=== PATIENT | female | born 1995 | race Caucasian/White ===

== ENCOUNTER 2016-05-29 17:59 | Emergency (ER) | payer OTHER ==
[~2016-05-29] VITALS: Ht 165.1 cm; Wt 63.6 kg
[2016-05-29 18:16] VITALS: BP 131/86; PULSE 84; RESP 15; O2SAT 100
[2016-05-29] MEDS ORDERED: Ondansetron 2 mg/mL 2 mL Inj IVPUSH ONE (18:35)
[2016-05-29] MEDS ORDERED: 0.9% Sodium Chloride 1,000 ML IV ONE (18:35)
--- NOTE | 2016-05-29 19:18 | ED.REPORT ---
HPI-General Illness Date of Service May 29, 2016 ED Provider: Stephan Andre MD Patient is a 21 year old female with a complicated past medical history including "stroke during infancy" with right hemiplegia, seizure disorder, and chronic migraines s/p left hemispherectomy (2012) who presents to the ED accompanied by her mother with a extremely vague history waxing and waning headache onset two weeks ago. Associated symptoms include subjective fever, pallor, fatigue, diarrhea, abdominal pain, nausea, vomiting, and intermittent periods of unresponsive "spacing out." The patient and her mother do not know if there is a pattern to the vomiting and unresponsive episodes. She has not had any neck stiffness, they have never measured her temperature or detected any objective fevers. The patient denies hematemesis, hematochezia, or other symptoms. No known sick contacts. She was given migraine medication and has been taking "a lot" of Ibuprofen, with some relief. The patient has had similar symptoms in the past, although less severe, associated with migraines after her brain surgery. The patient's parents also recently experienced 24 hours of migraine headaches but the patient has no other ill contacts. She has had no recent changes in medication. She has been taking her antiseizure medication is had no changes to her antiseizure medication regimen. She takes Trileptal. History is extremely vague both from patient and mother. She is followed by a neurologist in [place] by the name of Dr. Mackenzie Bacon. Nursing Notes Stated Complaint: VOMITING, FEVER Chief Complaint: General Complaint Nursing Notes Reviewed: Yes Allergies: Coded Allergies: lamotrigine (Verified Allergy, Severe, RENAL FAILURE, 05/29/16) No Known Allergies (Unverified Allergy, Unknown, 05/29/16) Scheduled Sulfamethoxazole/Trimeth 800-160 mg (Bactrim DS) 1 Each Tablet 1 TABLET PO BID General Time Seen by MD: 18:32 Chief Complaint Headache Hx Obtained From: Patient, Other family... (Mother) Arrived By: Walk-in Sudden in Onset?: No Onset Occurred: More than a week ago... (2 weeks) Symptom Duration: Waxes and wanes Location: : Abdomen: Head Quality: Painful Severity: Current: Moderate Severity: Maximum: Moderate Associated with: Reports: Fever, Nausea, Vomiting Relieved by: OTC medications, Prescription meds Context Related History: Reports Seizure disorder Recent Healthcare: Recent doctor visit Similar Sx Previous: Yes Past Medical History Past Medical History Stroke during infancy with right hemiplegia - seen at [facility] Seizure disorder Migraines Irregular heartbeat Past Surgical History Left hemispherectomy 2013 Smoking History Unknown if Ever Smoker Social History Other Social History: Good social support Ambulatory Status Independent Review of Systems + Pallor Full Review of Systems Constitutional: Reports: Fatigue, Fever (subjective ) Respiratory: Denies: Non-productive cough, Shortness of breath GI: Reports: Abdominal pain, Diarrhea, Nausea, Vomiting, Denies: Hematemesis, Hematochezia Neurologic: Reports: Change LOC (Periods of unresponsive "spacing out"), Headache (waxing and waning) Complete sys rev & neg: except as marked. Physical Exam Vital Signs Vital Signs Date Time Temp Pulse Resp B/P Pulse Ox O2 Delivery O2 Flow Rate FiO2 05/29/16 20:47 36.6 95 21 118/66 99 Room Air 05/29/16 18:16 36.8 84 15 131/86 100 Initial VS: Reviewed ENT: Conjunctiva normal, No scleral icterus Skin: Warm, Dry, No cyanosis Psychiatric: Mood/affect normal, Behavior normal, Normal thought content General/Constitutional: Awake, Alert Head / Eyes: Normocephalic Well-healed left craniotomy scar Neck: Supple, Full range of motion, No swelling Respiratory / Chest: Breath sounds NL, Breath sounds = bilat, No respiratory distress Cardiovascular: Heart rate NL, Regular rhythm, Heart sounds NL, No gallop, No murmurs, No rubs Wrist / Hand: Atraumatic 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 Neurologic: Oriented X3, Speech NL, No sensory deficits Focal Weakness: Positive: Lower extremity R (Plantarflexion, baseline), Upper extremity R (Right hand, baseline) Cerebellar Dysfunction: Negative: Finger-nose abnl Patient has 5/5 strength left lower extremity Interpretation & Diagnostics URINE : Negative URINE DIPSTICK: Bedside Urine Specific Glasgow * 1.010 Bedside Urine pH * 8 Bedside Urine Leukocyte Esterase * + Bedside Urine Nitrite * Negative Bedside Urine Protein * Negative Bedside Urine Glucose * Normal Bedside Urine Ketones * + Small Bedside Urine Urobilinogen * Normal Bedside Urine Bilirubin * Negative Bedside Urine Occult Blood * ~ 250 Aneudy/ml Urine to Lab * Yes Lab Results Interpretation Result Diagram: 05/29/16184805/29/16 184 Test 05/29/16 18:49 05/29/16 19:45 White Blood Count 9.9th/mm3 (3.8-10.1) Red Blood Count 4.88mil/mm3 (3.90-5.20) Hemoglobin 14.3g/dL (12.0-15.6) Hematocrit 42.1% (35.0-46.0) Mean Corpuscular Volume 86.3fL (81-100) Mean Corpuscular Hemoglobin 29.3pg (27.0-35.0) Mean Corpuscular Hemoglobin Concent 34.0% (32.0-37.0) Red Cell Distribution Width 12.4% (12.3-15.4) Platelet Count 245bil/L (150-400) Neutrophils (%) (Auto) 77.3% (40-74) Lymphocytes (%) (Auto) 17.6% (14-46) Monocytes (%) (Auto) 4.7% (4-12) Eosinophils (%) (Auto) 0.1% (0-5) Basophils (%) (Auto) 0.2% (0-3) Sodium Level 140mEq/L (134-144) Potassium Level 4.0mEq/L (3.5-5.2) Chloride Level 99mEq/L (97-108) Carbon Dioxide Level 24mmol/L (18-29) Blood Urea Nitrogen 7mg/dL (6-20) Creatinine 0.56mg/dL (0.57-1.00) Estimat Glomerular Filtration Rate 198mL/min (>59) Glucose Level 105mg/dL (60-99) Lactic Acid Level 2.1mmol/L (0.4-2.0) Calcium Level 9.9mg/dL (8.5-10.1) Magnesium Level 2.2mg/dL (1.6-2.6) Total Bilirubin 0.3mg/dL (0.0-1.2) Aspartate Amino Transf (AST/SGOT) 16U/L (0-50) Alanine Aminotransferase (ALT/SGPT) 13U/L (0-32) Alkaline Phosphatase 73U/L (25-150) Total Protein 7.7g/dL (6.4-8.4) Albumin 4.6g/dL (3.4-5.0) Lipase 72U/L (13-60) Hold Fuller Top Tube Received (Received) Urine Color Straw (YELLOW) Urine Appearance Cloudy (CLEAR,HAZY) Urine pH 7.0 (5.0-8.0) Urine Specific Glasgow 1.010 (1.003-1.035) Urine Protein Negativemg/dL (NEG,TRACE) Urine Glucose (UA) Negativemg/dL (NEGATIVE) Urine Ketones Negativemg/dL (NEGATIVE) Urine Occult Blood Moderate (NEGATIVE) Urine Nitrite Negative (NEGATIVE) Urine Bilirubin Negative (NEGATIVE) Urine Urobilinogen Normalmg/dL (NORMAL) Urine Leukocyte Esterase Small (NEGATIVE) Urine RBC 3-10/hpf (0-2) Urine WBC 0-5/hpf (0-5) Urine Epithelial Cells None/hpf (NONE-MOD) Urine Crystals None seen (NONE SEEN) Urine Bacteria Few/hpf (NONE-FEW) Urine Hyaline Casts None/lpf (NONE) Urine Granular Casts None seen (NONE SEEN) Urine Waxy Casts None seen (NONE SEEN) Urine Red Blood Cell Casts None seen (NONE SEEN) Urine White Blood Cell Casts None seen (NONE SEEN) Urine Mucus None seen (None Seen) Urine Trichomonas None seen (NONE SEEN) Urine Yeast None (NONE SEEN) Urinalysis Comment None Urine Culture Reflexed Indicated ECG Interpretation Time: 20:04 Interpreted by: ED physician Normal ECG Interpretation: Normal ECG w/ rate of... (85) CT Head Interpretation IMPRESSION: No comparisons available for review but the study shows no acute disease. There is a large left frontal parietal craniotomy, extending in the temporal area, with underlying encephalomalacia and ventriculomegaly. Significant portions of the left hemispheric brain parenchyma appear to have been resected. Reference to prior comparison CT or MR scanning reports is recommended and an addendum report can be generated if comparison imaging becomes available subsequently for review. No acute disease. Dictated by: Eduardo Esquivel M.D. on 05/29/2016 at 20:05 Study: Head CT no contrast Interpretation / Wet Read by: Interpret - Radiologist Re-Eval/Medical Decision Med Decision/Clinical Course Patient is a 21 year old female with a complicated past medical history including "stroke during infancy" with right hemiplegia, seizure disorder, and chronic migraines s/p left hemispherectomy (2012) who presents to the ED accompanied by her mother with a extremely vague history waxing and waning headache onset two weeks ago. Associated symptoms include subjective fever, pallor, fatigue, diarrhea, abdominal pain, nausea, vomiting, and intermittent periods of unresponsive "spacing out." The patient and her mother do not know if there is a pattern to the vomiting and unresponsive episodes. She has not had any neck stiffness, they have never measured her temperature or detected any objective fevers. The patient denies hematemesis, hematochezia, or other symptoms. No known sick contacts. She was given migraine medication and has been taking "a lot" of Ibuprofen, with some relief. The patient has had similar symptoms in the past, although less severe, associated with migraines after her brain surgery. The patient's parents also recently experienced 24 hours of migraine headaches but the patient has no other ill contacts. She has had no recent changes in medication. She has been taking her antiseizure medication is had no changes to her antiseizure medication regimen. She takes Trileptal. History is extremely vague both from patient and mother. She is followed by a neurologist in [place] by the name of Dr. Mackenzie Bacon. Here in the emergency department the patient is afebrile, hemodynamically stable , nontoxic in appearance with no meningismus, neck stiffness and negative Kernig /Brudzinski. Has no new lateralizing neurologic deficits and no demonstrated seizure-like activity on prolonged observation here in the emergency room. Addendum the extremely vague symptoms I opted to obtain a head CT scan that demonstrated no acute intracranial hemorrhage, new mass lesion or other acute process. Laboratory studies notable as below: URINE DIPSTICK: + Blood, no signs of UTI URINE : Negative LABS: CBC unremarkable CMP unremarkable but mildly elevated lactic acid at 2.1 Urinalysis shows small leukocyte esterase, negative nitrites, few bacteria Urine sent for culture The cause of the patient's presentation is entirely unclear. I see no evidence of acute infectious process. While the patient's mother initially stated that she thought the patient may have been having fevers on and off for the last couple of weeks she later stated that this is because sometimes her skin looked flushed but that she had never actually checked her temperature. At no point during the patient's ER visit did she ever have a fever. Her presentation is entirely unconvincing for meningitis or encephalitis and I do not feel that lumbar puncture is indicated. While her lactic acid is mildly elevated the overall clinical picture is not suggestive of sepsis or any infectious etiology for that matter. Some of the presentation is suggestive of possible absence type seizure with episodes described as her staring off into space. Therefore I discussed the patient in depth with the on-call neurologist for Dr. Bacon who believed that this was a possibility though they do not feel that the patient required emergent admission or transfer to their facility. They would prefer to see the patient in their clinic on Tuesday. I had a long conversation with the patient and her mother regarding this vague constellation of symptoms and our workup thus far. They do not desire admission and would prefer to follow up on an outpatient basis. While the cause of the patient's multiple complaints remains entirely perplexing I see no evidence that she requires emergent admission and I feel that she would likely better be served by visiting with her primary care physician and neurologist who are much more educated as to her extremely complex history. Prior to discharge follow-up and return precautions were reviewed in detail with the patient and her mother who verbalized understanding and agreement with the plan. The patient was discharged in stable condition. Of note the patient's UA showed equivocal findings of UTI the patient repeatedly changed her story initially stating that she had no symptoms of UTI and later stating that she was not sure if she had UTI symptoms and it may be she has urinary frequency and it may be she does not. I opted to go ahead and treat her for UTI. Source of Hx: Old records Time of Eval: 21:11 Patient Status: Condition improved Re-Evaluation/Progress Note: Discussed with patient and her mother lab results, neurology consult, diagnosis, and plan for discharge. Follow-up and return to the ER instructions given. Patient agrees with plan for care and all questions were addressed. The patient now reports intermittent dysuria. Consultation : Referral / Consult Name: Kenneth Pop MD Consulted With: Neurology Call Returned at: 19:53 Auto Body Mechanic Apprentice: Agrees with eval, Agrees with plan Note: Rajiv Baeza: Spoke with neurologist contract loader for patient's neurologist. Recommends no further workup, no EEG, no LP. Patient can call Tuesday to arrange EEG and further work-up. Counseled Regarding: Diagnosis, Lab results, Need for follow-up, When/why to return to ED Discharge & Departure Primary Impression: Vomiting Vomiting type: unspecified Vomiting Intractability: non-intractable Nausea presence: with nausea Qualified Code: R11.2 - Nausea with vomiting, unspecified Additional Impressions: Urinary tract infection Urinary tract infection type: site unspecified Hematuria presence: without hematuria Qualified Code: N39.0 - Urinary tract infection, site not specified History of stroke History of seizures Disposition: Home Discharge Condition All VS Reviewed: Yes Condition: Improved Patient Instructions: Acute Nausea and Vomiting (ED), Urinary Tract Infection in Women (ED) Additional Instructions: Thank you for seeking care at the emergency room. You were evaluated today for your nausea and vomiting. Our primary goal today in the ED today was to evaluate you for any life- threatening conditions. Your evaluation was reassuring although we did find evidence of a urinary tract infection. You will be discharged with a prescription for an antibiotic. You should call your neurologist on Tuesday to arrange an EEG and further work- up. You should return to the ED immediately if you develop seizure-like activity, reduced eating or drinking, fevers, vomiting, cough, shortness of breath, chest pain, lightheadedness, weakness or any other concerning signs or symptoms. Thank you for letting us partake in your care today. Referrals: OTHER,PHYSICIAN (PCP) (Family) Scribe Attestation Portions of this note were transcribed by Zara Andrews. I, Dr. Andre, personally performed the history, physical exam, and medical decision-making; I reviewed and confirmed the accuracy of the information in the transcribed note. Signed by: Devorah Magana, 05/29/2016, 22:45 Stephan Andre MD May 29, 2016 19:18 ZARA ANDREWS May 29, 2016 19:26
[2016-05-29 19:39] LABS: BASOPHILS % (AUTO) 0.2 % (0-3); EOSINOPHILS % (AUTO) 0.1 % (0-5); MONOCYTES % (AUTO) 4.7 % (4-12); Mean Corpuscular Hemoglobin 29.3 pg (27.0-35.0); Mean Corpuscular Volume 86.3 fL (81-100); NEUTROPHILS % (AUTO) 77.3 % (40-74); Platelet Count 245 bil/L (150-400)
[2016-05-29 20:03] LABS: Magnesium 2.2 mg/dL (1.6-2.6)
--- NOTE | 2016-05-29 20:11 | DRSVH ---
PROCEDURE: CT BRAIN WITHOUT CONTRAST ([id number]) INDICATIONS: ams, h/o brain surgery, elevated icp? TECHNIQUE: Noncontrast 4.5 mm thick angled axial sections acquired from the foramen magnum to the vertex, with c oronal reformats. COMPARISON: None. FINDINGS: Image quality: Excellent. CSF spaces: Basal cisterns are patent. There is a very large intra-axial and fluid collection compri sed of marked enlargement of the left lateral ventricle and thinning of the overlying brain parenchym a, including thinning of the adjacent frontal parietal cortex in an area of prior craniotomy on the l eft. Significant portions of the left hemisphere are absent, reported related to prior surgery. Yohan tricles are asymmetric in size and shape, normal on the right and secondarily enlarged on the left. Brain: No midline shift. No intracranial masses or hemorrhage. Mathis-white matter interface is norm al. On the right Skull and face: Calvarium and visualized facial bones are intact, without suspicious acute lesions b ut there is evidence of a large chronic left frontal temporal and parietal craniotomy.. Sinuses: Visualized sinuses and mastoids are clear. IMPRESSION: No comparisons available for review but the study shows no acute disease. There is a la rge left frontal parietal craniotomy, extending in the temporal area, with underlying encephalomalaci a and ventriculomegaly. Significant portions of the left hemispheric brain parenchyma appear to have been resected. Reference to prior comparison CT or MR scanning reports is recommended and an addend um report can be generated if comparison imaging becomes available subsequently for review. No acute disease. Dictated by: Eduardo Esquivel M.D. on 05/29/2016 at 20:05 Approved by: Eduardo Esquivel M.D. on 05/29/2016 at 20:09
[2016-05-29 20:17] LABS: APPEARANCE,URINE CLOUDY (CLEAR,HAZY); COLOR,URINE STRAW (YELLOW); OCCULT BLOOD,URINE MODERATE (NEGATIVE); UROBILINOGEN,URINE NORMAL (NORMAL)
[2016-05-29 20:47] VITALS: BP 118/66; PULSE 95; RESP 21; O2SAT 99
[2016-05-29] MEDS ORDERED: SULF1TAB7 PO (21:20)
== END 2016-05-29 21:37 | disposition home or self-care (01) ==
LOC: SED 17:59
DX: N39.0 Urinary tract infection, site not specified (principal); R11.2 Nausea with vomiting, unspecified; Z86.73 Personal history of transient ischemic attack (TIA), and cerebral infarction without residual deficits; Z88.8 Allergy status to other drugs, medicaments and biological substances
CPT/HCPCS: 36415; 70450; 80053; 81000; 81025; 83605; 83690; 83735; 85025; 87040; 87086; 87088; 93005; 96361; 96374; 99285; J2405; J7030